=== PATIENT | female | born 2000 | race Caucasian/White ===

== ENCOUNTER 2023-10-20 08:27 | Emergency (ER) | payer BC, SELFPAY ==
[2023-10-20 08:39] VITALS: BP 115/62; PULSE 64; RESP 18; TEMP 36.4; O2SAT 100
[2023-10-20 08:55] LABS: EDUAAPPEAR Cloudy; EDUABILI Negative; EDUABLOOD 1+; EDUACOLOR1 Yellow; EDUAGLUCOSE Negative; EDUAKETONE Negative; EDUALEUKO 2+; EDUANITRATE Negative; EDUAPROTEIN 1+; EDUAUROBILI 0.2
--- NOTE | 2023-10-20 09:03 | ED.GENADULT ---
HPI - General Adult General Chief complaint: Back Pain/Injury Stated complaint: Abdomainal Pain/Back Pain Time Seen by Provider: 10/20/23 08:44 Source: patient and RN notes reviewed Mode of arrival: ambulatory Limitations: no limitations History of Present Illness HPI narrative: Patient presents today with a 3 day history of left flank pain that has since spread to the right flank. States these pains feel like spasms. She also reports fever up to 100.3 for a short period of time with some lower abdominal cramping as well. Currently rates her pain 5/10 and has been taking Tylenol with some relief. She also reports some cloudy malodorous urine at onset of symptoms, but this has since resolved after increasing her water intake. She denies any additional symptoms to include dysuria, frequency, hematuria. She has a Mirena. Related Data Allergies Allergy/AdvReac Type Severity Reaction Status Date / Time amoxicillin Allergy Rash Verified 10/20/23 08:44 Review of Systems Review of Systems: CONSTITUTIONAL: Denies body aches, chills, or sweats.+ fever EYES: Denies visual changes, redness, or discharge. ENT: Denies rhinorrhea, congestion, sore throat, or otalgia. CARDIOVASCULAR: Denies chest pain, palpitations, or edema. RESPIRATORY: Denies cough or dyspnea. GASTROINTESTINAL: Denies nausea, vomiting, or diarrhea.+ lower abdominal cramping, bilateral flank pain GENITOURINARY: Denies dysuria or hematuria. SKIN: Denies rash, itching, or wounds. MUSCULOSKELETAL: Denies back pain, joint pain, or myalgia. NEUROLOGIC: Denies headache, numbness, tingling, or weakness. PSYCH: Denies depression or anxiety. PMFSH Comments At time of signature, I have reviewed and agree with nursing past medical, surgical, social and family history unless otherwise noted. Please see nursing chart for further information. There is no relevant family history pertinent to the presenting complaint Exam Narrative: GENERAL: Well-appearing, well-nourished, and in no acute distress. HEAD: Normocephalic, atraumatic. EYES: EOMI. No redness or drainage. Conjunctivae normal. ENT: Mucous membranes pink and moist. NECK: Normal AROM. CHEST: No respiratory distress. Clear to auscultation. HEART: Regular rate and rhythm. No murmur appreciated. ABDOMEN: Soft, nondistended, normal active bowel sounds.+ suprapubic tenderness. -CVAT EXTREMITIES: Normal range of motion. No edema. SKIN: Warm, dry, no rash. Capillary refill normal. Normal skin turgor. NEURO: No focal deficits. Alert and oriented x3. Gait steady. PSYCH: Normal affect. No signs of depression or anxiety. Course Course Level of Care: Express Care Visit Vital Signs Vital signs: Vital Signs Temperature 97.5 F L 10/20/23 08:39 Pulse Rate 64 10/20/23 08:39 Respiratory Rate 18 10/20/23 08:39 Blood Pressure 115/62 10/20/23 08:39 Pulse Oximetry 100 10/20/23 08:39 Oxygen Delivery Room Air 10/20/23 08:39 Temperature 97.5 F L 10/20/23 08:39 Pulse Rate 64 10/20/23 08:39 Respiratory Rate 18 10/20/23 08:39 Blood Pressure 115/62 10/20/23 08:39 Pulse Oximetry 100 10/20/23 08:39 Oxygen Delivery Room Air 10/20/23 08:39 Review Medical Decision Making MDM Narrative Medical decision making narrative: Urinalysis and history is consistent with UTI. Will treat with Keflex. Recommend continuing Tylenol or NSAIDs for discomfort as well. Culture pending. Anticipatory guidance given. Differential Diagnosis Differential Diagnosis: UTI, pyelonephritis, back strain Vital Signs Vital Signs: Vital Signs Temperature 97.5 F L 10/20/23 08:39 Pulse Rate 64 10/20/23 08:39 Respiratory Rate 18 10/20/23 08:39 Blood Pressure 115/62 10/20/23 08:39 Pulse Oximetry 100 10/20/23 08:39 Oxygen Delivery Room Air 10/20/23 08:39 Temperature 97.5 F L 10/20/23 08:39 Pulse Rate 64 10/20/23 08:39 Respiratory Rate 18 10/20/23 08:39 Blood Pressure
== END 2023-10-20 09:23 | disposition home or self-care (01) ==
PROVIDERS: Emergency Provider Nurse Practitioner; PCP Family Medicine
DX: N30.01 Acute cystitis with hematuria (principal); B96.20 Unspecified Escherichia coli [E. coli] as the cause of diseases classified elsewhere
CPT/HCPCS: 81003; 87077; 87086; 87088; 87186; 99203; G0463

== ENCOUNTER 2023-12-13 16:20 | Emergency (ER) | payer BC, SELFPAY ==
[2023-12-13 16:31] VITALS: BP 111/67; PULSE 54; RESP 18; TEMP 36.7; O2SAT 100
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
== END 2023-12-13 17:01 | disposition short-term general hospital (02) ==
LOC: EXPTROY 16:26
PROVIDERS: Emergency Provider Nurse Practitioner Family; PCP Family Medicine
DX: S09.90XA Unspecified injury of head, initial encounter (principal); V49.40XA Driver injured in collision with unspecified motor vehicles in traffic accident, initial encounter; Z86.16 Personal history of COVID-19
CPT/HCPCS: 99212; G0463